=== PATIENT | female | born 1995 | race American Indian/Alaskan Native ===

== ENCOUNTER 2017-09-20 14:04 | Outpatient (CLI) | payer MEDICAID ==
[2017-09-20] MEDS ORDERED: LACTATED RINGERS 1,000 ML IV ONE (14:29)
[2017-09-20] MEDS ORDERED: ZOFRAN IV ONE (14:30)
[2017-09-20 15:02] LABS: Bacteria,Urine 1+ /HPF (Negative); Bilirubin,Urine NEG (Negative); Blood,Urine NEG (Negative); Color,Urine Yellow (Yellow); Mucus,Urine 1+ /HPF; RBC,Urine < 1.0 /HPF (0.0-6.0); Urobilinogen,Urine < 2.0 mg/dL (<2.0)
[2017-09-20 15:51] VITALS: BP 93/58
== END 2017-09-20 16:25 | disposition home or self-care (01) ==
LOC: TRG 14:04
PROVIDERS: ATTEND Obstetrics & Gynecology
DX: O47.03 False labor before 37 completed weeks of gestation, third trimester (principal); Z3A.31 31 weeks gestation of pregnancy
CPT/HCPCS: 59025; 81001; 96360; 96361; 96374; J2405; J7120

== ENCOUNTER 2017-12-07 14:46 | Emergency (ER) | payer MEDICAID ==
[2017-12-07 15:35] VITALS: BP 130/87
== END 2017-12-07 16:32 | disposition left against medical advice (07) ==
LOC: ED 14:46
DX: R10.9 Unspecified abdominal pain (principal); Z53.21 Procedure and treatment not carried out due to patient leaving prior to being seen by health care provider

== ENCOUNTER 2018-07-01 16:08 | Outpatient (CLI) | payer MEDICAID ==
[2018-07-01 16:56] VITALS: BP 107/61
[2018-07-01 17:22] LABS: Bilirubin,Urine NEG (Negative); Blood,Urine NEG (Negative); Color,Urine Yellow (Yellow); Mucus,Urine 3+ /HPF
[2018-07-01] MEDS ORDERED: LACTATED RINGERS 500 ML IV ONE (17:57)
== END 2018-07-01 18:31 | disposition home or self-care (01) ==
LOC: TRG 16:08
PROVIDERS: ATTEND Obstetrics & Gynecology
DX: O47.02 False labor before 37 completed weeks of gestation, second trimester (principal); Z3A.27 27 weeks gestation of pregnancy
CPT/HCPCS: 36415; 59025; 81001; 82731; J7120

== ENCOUNTER 2018-07-25 10:27 | Outpatient (CLI) | payer MEDICAID ==
[2018-07-25] MEDS ORDERED: LACTATED RINGERS 500 ML IV ONE (10:54)
[2018-07-25 11:45] LABS: Hematocrit 34.4 % (30.3-42.9); Hemoglobin 11.8 gm/dl (10.1-14.3); Mean Corpuscular HGB Conc 34 % (30-34); Mean Corpuscular Volume 90 fl (79-97); Platelet Count 179 K/mm3 (140-440); Red Blood Count 3.81 M/mm3 (3.65-5.03); Red Cell Distribution Width 13.6 % (13.2-15.2)
[2018-07-25 11:50] LABS: Bilirubin,Urine NEG (Negative); Blood,Urine NEG (Negative); Color,Urine Yellow (Yellow); Mucus,Urine 1+ /HPF; Urobilinogen,Urine < 2.0 mg/dL (<2.0)
[2018-07-25 12:11] LABS: Alanine Aminotransferase 8 units/L (7-56); Albumin 3.1 g/dL (3.9-5); BUN/Creatinine Ratio 13; Blood Urea Nitrogen 5 mg/dL (7-17); Hemolysis Index 18
--- NOTE | 2018-07-25 14:14 | Ultrasound Report ---
FINAL REPORT EXAM: BIOPHYSICAL PROFILE WO NST HISTORY: well bring-twins TECHNIQUE: Grayscale and color doppler ultrasound of the fetus was performed for biophysical profile . PRIORS: None. FINDINGS: Twin intrauterine was present. This biophysical profile study was performed on fetus A whic h is present in cephalic presentation. Biophysical profile score of 8 out of 8 was noted. Scores of 2 out of 2 were given for breathin g movements, movements, posterior and tone and qualitative amniotic fluid volume. h eart rate was 140 beats per minute. IMPRESSION: Normal biophysical profile, Fetus A.
--- NOTE | 2018-07-25 14:15 | Ultrasound Report ---
FINAL REPORT EXAM: BIOPHYSICAL PROFILE HISTORY: well being-twins TECHNIQUE: Grayscale and color doppler ultrasound of the fetus was performed for biophysical profile . PRIORS: None. FINDINGS: Twin intrauterine is present. The study was performed on fetus B which is present in cephal ic presentation. Biophysical profile score of 8 out of 8 was noted. Scores of 2 out of 2 were given for breathin g movements, movements, posterior and tone and qualitative amniotic fluid volume. IMPRESSION: Normal biophysical profile, Fetus B.
== END 2018-07-25 14:07 | disposition home or self-care (01) ==
LOC: TRG 10:27
PROVIDERS: ATTEND Obstetrics & Gynecology
DX: O21.2 Late vomiting of pregnancy (principal); O26.893 Other specified pregnancy related conditions, third trimester; R19.7 Diarrhea, unspecified; O47.03 False labor before 37 completed weeks of gestation, third trimester; Z3A.31 31 weeks gestation of pregnancy
CPT/HCPCS: 36415; 59025; 76819; 80053; 81001; 85027; J7120; 96360

== ENCOUNTER 2018-08-22 17:45 | Inpatient (IN) | payer MEDICAID ==
[2018-08-22] MEDS ORDERED: SUBLIMAZE IV PRN (19:23)
[2018-08-22] MEDS ORDERED: STADOL IV PRN (19:23)
[2018-08-22] MEDS ORDERED: BRETHINE IVP PRN (19:23)
[2018-08-22] MEDS ORDERED: ZOFRAN IV PRN (19:23)
[2018-08-22] MEDS ORDERED: BRETHINE SUB-Q PRN (19:23)
[2018-08-22] MEDS ORDERED: MINERAL OIL PO PRN (19:23)
--- NOTE | 2018-08-22 19:29 | History and Physical Report ---
History of Present Illness Date of examination: 08/22/18 Chief complaint: Labor History of present illness: Pt is a 22yo BF EDC 09/27/18; EGA 34 6/7 weeks presents to L&D complaining of irregular contractions. She received care at [facility] since 9 weeks and co-managed by [facility]ID for Twin gestation. She was seen in the office last week and was dilated 3cms, today she has progressed to 4.5cm records are available and GBS is Negative. Past History Past Medical History: no pertinent history Past Surgical History: no surgical history Family/Genetic History: none Social history: no significant social history, single - Obstetrical History Expected Date of Delivery: 09/27/18 Actual Gestation: 34 Week(s) 6 Day(s) : 4 Medications and Allergies Allergies Allergy/AdvReac Type Severity Reaction Status Date / Time animal dander Allergy Severe Itching Verified 08/22/18 18:02 Home Medications Medication Instructions Recorded Confirmed Last Taken Type Vit-Fe Fumar-FA [ 1 tab PO QDAY 08/22/18 08/22/18 Unknown History Vitamin] Active Meds: Active Medications Butorphanol Tartrate (Stadol) 2 mg IV Q2H PRN PRN Reason: Pain , Severe (7-10) Ephedrine Sulfate (Ephedrine Sulfate) 10 mg IV Q2M PRN PRN Reason: Hypotension Fentanyl (Sublimaze) 100 mcg IV Q2H PRN PRN Reason: Labor Pain Ampicillin Sodium (Ampicillin/Ns 1 Gm/50 Ml) 1 gm in 50 mls @ 100 mls/hr IV Q4HR DAVID; Protocol Ampicillin Sodium (Polycillin/Ns 2 Gm/100 Ml) 2 gm in 100 mls @ 100 mls/hr IV ONCE ONE; Protocol Stop: 08/22/18 20:22 Lactated Ringer's (Lactated Ringers) 1,000 mls @ 125 mls/hr IV DIRECT DAVID Oxytocin/Sodium Chloride (Pitocin/Ns 20 Unit/1000ml Drip) 20 units in 1,000 mls @ 125 mls/hr IV DIRECT DAVID Oxytocin/Sodium Chloride (Pitocin/Ns 30 Unit/500ml) 30 units in 500 mls @ 1 mls/hr IV TITR DAVID; Protocol Lidocaine (Xylocaine 2%) 20 ml INFILTRATI ONCE ONE Stop: 03/10/19 19:24 Mineral Oil (Mineral Oil) 30 ml PO QHS PRN PRN Reason: Constipation Ondansetron HCl (Zofran) 4 mg IV Q8H PRN PRN Reason: Nausea And Vomiting Terbutaline Sulfate (Brethine) 0.25 mg SUB-Q ONCE PRN PRN Reason: Hyperstimulation/Hypertonicity Terbutaline Sulfate (Brethine) 0.25 mg IVP ONCE PRN PRN Reason: Hyperstimulation/Hypertonicity Review of Systems All systems: negative - Vital Signs Vital signs: Vital Signs Pulse BP 110 H 136/83 08/22/18 18:21 08/22/18 18:21 Temp Pulse Resp BP Pulse Ox 110 H 136/83 08/22/18 18:21 08/22/18 18:21 - Physical Exam Breasts: Positive: deferred Cardiovascular: Regular rate Lungs: Positive: Clear to auscultation Abdomen: Positive: normal appearance Genitourinary (Female): Positive: normal external genitalia Vagina: Positive: normal moisture Uterus: Positive: enlarged Extremities: Positive: normal - Obstetrical FHR: category 1 Uterine Contraction Monitor Mode: External Cervical Dilatation: 4.5 (per nurse) Cervical Effacement Percentage: 70 (per nurse) station: -2 Uterine Contraction Pattern: Regular Uterine Tone Measurement Phase: Contraction Uterine Contraction Intensity: Mild Results All other labs normal. Ultrasound: report reviewed (Vetex/breech presentation) Assessment and Plan - Patient Problems (1) 35 weeks gestation of Onset Date: 08/22/18 Current Visit: Yes Status: Acute Plan to address problem: A: IUP @ 34 6/7 weeks in early labor Vertex/breech presentation GBS Negative P: Will admit for Observation and IV hydration and IV Magnesium sulfate Begin steroids for FLM [facility] and NICU consultation (2) Twin gestation in third trimester Onset Date: 08/22/18 Current Visit: Yes Status: Acute Qualifiers: Multiple gestation type: dichorionic and diamniotic Qualified Code(s): O30.043 - Twin , dichorionic/diamniotic, third trimester
[2018-08-22] MEDS ORDERED: AMPICILLIN/NS 2 GM/100 ML 2 GM/100 ML BAG IV ONE (20:00)
[2018-08-22] MEDS ORDERED: PITOCin/NS 20 UNIT/1000ML DRIP 20 UNITS/1,000 ML BAG IV SCH (20:00)
[2018-08-22] MEDS ORDERED: PITOCin/NS 30 UNIT/500ML 30 UNITS/500 ML BAG IV SCH (20:00)
[2018-08-22] MEDS ORDERED: XYLOCAINE 2% INFILTRATI ONE (20:00)
[2018-08-22 20:14] LABS: Bilirubin,Urine NEG (Negative); Blood,Urine NEG (Negative); Color,Urine Yellow (Yellow); Mucus,Urine FEW /HPF; Protein,Urine <15 mg/dL mg/dL (Negative); Urobilinogen,Urine < 2.0 mg/dL (<2.0)
[2018-08-22] MEDS ORDERED: MAGNESIUM SULFATE 4GM/100ML 4 GM/100 ML BAG IV ONE (20:16)
[2018-08-22] MEDS ORDERED: BICITRA ONE (20:29)
--- NOTE | 2018-08-22 20:45 | Ultrasound Report ---
PROCEDURE: Limited obstetrical ultrasound. TECHNIQUE: Real-time limited sonographic examination was performed for evaluation of twin A with amador ge documentation (1 or more fetuses). HISTORY: Twin gestation, labor, evaluate presentation. COMPARISONS: None. FINDINGS: Twin A is in cephalic presentation. Cardiac activity is documented at 152 bpm. Twin B is in breech pr esentation. Cardiac activity is documented at 143 bpm. IMPRESSION: Viable twin with twin A in cephalic presentation and twin B in breech presentation. This document is electronically signed by Pete Noel MD., August 22 2018 08:43:11 PM ET
--- NOTE | 2018-08-22 20:53 | Ultrasound Report ---
PROCEDURE: US OB LIMITED TECHNIQUE: Ultrasound obstetrical limited for presentation HISTORY: 35 weeks; Twins; Presentation COMPARISONS: FINDINGS: Twin . Please see today's additional OB ultrasound For twin B presentation is breech. Cardiac activity present with a heart rate 1 43 bpm IMPRESSION: Twin B in breech presentation. This document is electronically signed by Addy Negrete MD., August 22 2018 08:51:47 PM ET
[2018-08-22] MEDS ORDERED: CELESTONE SOLUSPAN IM SCH (21:00)
[2018-08-22] MEDS: DECADRON IM SCH (22:25)
[2018-08-22] MEDS: MAGNESIUM SULFATE 40GM/1000ML 40 GM/1,000 ML BAG IV SCH (22:27)
[2018-08-22] MEDS: LACTATED RINGERS 1,000 ML IV SCH (22:28)
[2018-08-22 23:14] LABS: Hematocrit 34.3 % (30.3-42.9); Hemoglobin 11.6 gm/dl (10.1-14.3); Mean Corpuscular HGB Conc 34 % (30-34); Mean Corpuscular Volume 89 fl (79-97); Platelet Count 177 K/mm3 (140-440); Red Blood Count 3.86 M/mm3 (3.65-5.03); Red Cell Distribution Width 13.7 % (13.2-15.2)
[2018-08-23] MEDS ORDERED: BICITRA PO ONE (00:47)
[2018-08-23] MEDS: DECADRON IM SCH ×2 (10:29→22:25)
--- NOTE | 2018-08-23 11:52 | Progress Note ---
Assessment and Plan - Patient Problems (1) 35 weeks gestation of Onset Date: 08/22/18 Current Visit: Yes Status: Acute Plan to address problem: A: IUP @ 35 0/7 weeks in early labor Vertex/breech presentation GBS Negative P: Will continue with Observation, IV hydration and IV Magnesium sulfate until steroids for FLM completed [facility] consultation (2) Twin gestation in third trimester Onset Date: 08/22/18 Current Visit: Yes Status: Acute Qualifiers: Multiple gestation type: dichorionic and diamniotic Qualified Code(s): O30.043 - Twin , dichorionic/diamniotic, third trimester Subjective - Subjective Date of service: 08/23/18 Principal diagnosis: IUP @ 35 0/7 weeks; Twin gestation; PTL Interval history: Pt is a 22yo BF EDC 09/27/18; EGA 35 0/7 weeks admitted to L&D complaining of irregular contractions. She received care at [facility] since 9 weeks and co-managed by [facility] for Twin gestation. She was seen in the office last week and was dilated 3cms, today she has progressed to 4.5cm. She is currently on IV Magnesium sulfate until she completes her course of steroids. records are available and GBS is Negative. Patient reports: movement normal, contractions, no new complaints, no loss of fluid, no vaginal bleeding Objective - Vital Signs Vital Signs: Vital Signs - 12hr 08/23/18 08/23/18 08/23/18 00:42 00:43 00:48 Pulse Rate 97 H 99 H 113 H Blood Pressure O2 Sat by Pulse 94 100 97 Oximetry 08/23/18 08/23/18 08/23/18 00:53 00:58 01:03 Pulse Rate 107 H 105 H 98 H Blood Pressure O2 Sat by Pulse 100 100 100 Oximetry 08/23/18 08/23/18 08/23/18 01:08 01:10 01:13 Pulse Rate 104 H 101 H 111 H Blood Pressure 131/76 O2 Sat by Pulse 99 99 Oximetry 08/23/18 08/23/18 08/23/18 01:33 01:38 01:40 Pulse Rate 111 H 97 H 115 H Blood Pressure 121/73 O2 Sat by Pulse 92 93 Oximetry 08/23/18 08/23/18 08/23/18 01:43 01:49 01:50 Pulse Rate 112 H 98 H Blood Pressure O2 Sat by Pulse 97 58 L 79 L Oximetry 08/23/18 08/23/18 08/23/18 01:55 02:00 02:05 Pulse Rate 102 H 111 H 108 H Blood Pressure O2 Sat by Pulse 99 100 97 Oximetry 08/23/18 08/23/18 08/23/18 02:10 02:11 02:29 Pulse Rate 109 H 109 H 117 H Blood Pressure O2 Sat by Pulse 99 0 L 100 Oximetry 08/23/18 08/23/18 08/23/18 02:34 02:39 02:40 Pulse Rate 121 H 115 H 100 H Blood Pressure 135/69 O2 Sat by Pulse 99 100 Oximetry 08/23/18 08/23/18 08/23/18 02:44 03:10 03:11 Pulse Rate 108 H 112 H 100 H Blood Pressure 143/63 O2 Sat by Pulse 98 96 Oximetry 08/23/18 08/23/18 08/23/18 03:36 03:40 03:42 Pulse Rate 101 H 107 H 109 H Blood Pressure 131/72 O2 Sat by Pulse 100 87 Oximetry 08/23/18 08/23/18 08/23/18 03:43 03:48 04:10 Pulse Rate 94 H 115 H 107 H Blood Pressure 123/85 O2 Sat by Pulse 100 99 Oximetry 08/23/18 08/23/18 08/23/18 04:15 04:20 04:40 Pulse Rate 114 H 124 H 95 H Blood Pressure 99/54 O2 Sat by Pulse 99 100 Oximetry 08/23/18 08/23/18 08/23/18 05:10 05:15 05:39 Pulse Rate 108 H 108 H 110 H Blood Pressure 125/73 125/74 137/75 O2 Sat by Pulse Oximetry 08/23/18 08/23/18 08/23/18 06:10 06:37 06:40 Pulse Rate 93 H 115 H 103 H Blood Pressure 123/59 122/57 O2 Sat by Pulse 100 Oximetry 08/23/18 08/23/18 08/23/18 06:42 06:47 06:53 Pulse Rate 101 H 102 H 28 L Blood Pressure O2 Sat by Pulse 100 100 94 Oximetry 08/23/18 08/23/18 08/23/18 06:54 06:59 07:04 Pulse Rate 114 H 105 H 102 H Blood Pressure O2 Sat by Pulse 100 100 99 Oximetry 08/23/18 08/23/18 08/23/18 07:09 07:10 07:11 Pulse Rate 102 H 112 H 96 H Blood Pressure 119/61 O2 Sat by Pulse 99 70 L Oximetry 08/23/18 08/23/18 08/23/18 07:16 07:18 07:29 Pulse Rate 99 H 112 H Blood Pressure O2 Sat by Pulse 80 L 100 100 Oximetry 08/23/18 08/23/18 08/23/18 07:34 07:39 07:41 Pulse Rate 122 H 104 H 101 H Blood Pressure 94/50 O2 Sat by Pulse 100 99 Oximetry 08/23/18 08/23/18 08/23/18 07:44 08:09 08:40 Pulse Rate 110 H 95 H 108 H Blood Pressure 125/73 126/71 O2 Sat by Pulse 100 Oximetry 08/23/18 08/23/18 08/23/18 09:10 09:35 09:41 Pulse Rate 105 H 117 H 103 H Blood Pressure 121/86 118/66 O2 Sat by Pulse 100 Oximetry 08/23/18 08/23/18 08/23/18 09:43 09:46 09:48 Pulse Rate 110 H 94 H 108 H Blood Pressure O2 Sat by Pulse 100 74 L 100 Oximetry 08/23/18 08/23/18 08/23/18 09:53 09:58 10:03 Pulse Rate 110 H 109 H 109 H Blood Pressure O2 Sat by Pulse 100 100 100 Oximetry 08/23/18 08/23/18 08/23/18 10:08 10:10 10:13 Pulse Rate 94 H 95 H 94 H Blood Pressure 116/71 O2 Sat by Pulse 100 100 Oximetry 08/23/18 08/23/18 08/23/18 10:18 10:23 10:28 Pulse Rate 95 H 95 H 97 H Blood Pressure O2 Sat by Pulse 100 100 100 Oximetry 08/23/18 08/23/18 08/23/18 10:33 10:38 10:40 Pulse Rate 91 H 98 H 91 H Blood Pressure 118/65 O2 Sat by Pulse 100 100 Oximetry 08/23/18 08/23/18 08/23/18 10:43 10:48 10:50 Pulse Rate 95 H 111 H 120 H Blood Pressure O2 Sat by Pulse 100 100 23 L Oximetry 08/23/18 08/23/18 08/23/18 10:55 10:59 11:04 Pulse Rate 118 H 113 H 100 H Blood Pressure 135/72 O2 Sat by Pulse 93 100 Oximetry 08/23/18 08/23/18 08/23/18 11:09 11:28 11:29 Pulse Rate 108 H 102 H 101 H Blood Pressure O2 Sat by Pulse 100 90 95 Oximetry 08/23/18 08/23/18 11:34 11:41 Pulse Rate 98 H 106 H Blood Pressure O2 Sat by Pulse 100 100 Oximetry - Exam Abdomen: Present: normal appearance, soft Uterus: Present: normal FHR: category 1 Uterine Contraction Monitor Mode: External Cervical Dilatation: 5.5 (per nurse) Cervical Effacement Percentage: 80 (per nurse) station: -2 Uterine Contraction Pattern: Irregular Uterine Tone Measurement Phase: Contraction Uterine Contraction Intensity: Mild - Labs Labs: Abnormal Labs 08/22/18 08/23/18 08/23/18 18:00 01:11 08:47 Magnesium 4.10 H 5.30 H Urine WBC (Auto) 10.0 H Laboratory Results - last 24 hr 08/22/18 08/22/18 08/22/18 18:00 22:41 22:41 WBC 9.6 RBC 3.86 Hgb 11.6 Hct 34.3 MCV 89 MCH 30 MCHC 34 RDW 13.7 Plt Count 177 Magnesium Urine Color Yellow Urine Turbidity Clear Urine pH 6.0 Ur Specific [place] 1.023 Urine Protein <15 mg/dl Urine Glucose (UA) Neg Urine Ketones Neg Urine Blood Neg Urine Nitrite Neg Urine Bilirubin Neg Urine Urobilinogen < 2.0 Ur Leukocyte Esterase Sm Urine WBC (Auto) 10.0 H Urine RBC (Auto) 2.0 U Epithel Cells (Auto) 6.0 Urine Mucus Few Blood Type O POSITIVE Antibody Screen Negative 08/23/18 08/23/18 01:11 08:47 WBC RBC Hgb Hct MCV MCH MCHC RDW Plt Count Magnesium 4.10 H 5.30 H Urine Color Urine Turbidity Urine pH Ur Specific [place] Urine Protein Urine Glucose (UA) Urine Ketones Urine Blood Urine Nitrite Urine Bilirubin Urine Urobilinogen Ur Leukocyte Esterase Urine WBC (Auto) Urine RBC (Auto) U Epithel Cells (Auto) Urine Mucus Blood Type Antibody Screen
[2018-08-23] MEDS ORDERED: SUBLIMAZE IV ONE (13:23)
--- NOTE | 2018-08-23 13:59 | Consultation ---
History of Present Illness Consult date: 08/23/18 Requesting physician: DIRK GARCIA History of present illness: Ms. Magallon is a 22 y/o NANDA 09/29/18 EGA at 35 0/7 weeks Di/Di Twins Presented on 08/22/18 with PTL Initial exam 4-5 cm and examined today at 5 1/2 cm Nurses report PTC's at 1-3 " Denies Leakage vag bleeding Pos FM's Denies Complications On Mg getting Dexamethasone 6 mg q 12 x 4 OB History 2017 Term no comps 2018 Term - reported ?? cervical/uterine prolapse after delivery No Meds, No Surg, NKA, No C/D/D, No STD's US [facility] - Vtx/Breech Past History Past Medical History: no pertinent history Past Surgical History: no surgical history Family/Genetic History: none - Obstetrical History : 4 Medications and Allergies Allergies Allergy/AdvReac Type Severity Reaction Status Date / Time animal dander Allergy Severe Itching Verified 08/22/18 18:02 Home Medications Medication Instructions Recorded Confirmed Last Taken Type Vit-Fe Fumar-FA [ 1 tab PO QDAY 08/22/18 08/22/18 Unknown History Vitamin] Active Meds: Active Medications Betamethasone Acet/Betameth SodPhos (Celestone Soluspan) 12 mg IM Q24H DAVID Stop: 08/23/18 21:01 Butorphanol Tartrate (Stadol) 2 mg IV Q2H PRN PRN Reason: Pain , Severe (7-10) Dexamethasone (Decadron) 6 mg IM Q12HR DAVID Stop: 08/24/18 10:01 Last Admin: 08/23/18 10:29 Dose: 6 mg Documented by: Ephedrine Sulfate (Ephedrine Sulfate) 10 mg IV Q2M PRN PRN Reason: Hypotension Fentanyl (Sublimaze) 100 mcg IV Q2H PRN PRN Reason: Labor Pain Ampicillin Sodium (Ampicillin/Ns 1 Gm/50 Ml) 1 gm in 50 mls @ 100 mls/hr IV Q4H DAVID; Protocol Lactated Ringer's (Lactated Ringers) 1,000 mls @ 125 mls/hr IV DIRECT DAVID Last Admin: 08/22/18 22:28 Dose: 125 mls/hr Documented by: Oxytocin/Sodium Chloride (Pitocin/Ns 20 Unit/1000ml Drip) 20 units in 1,000 mls @ 125 mls/hr IV DIRECT DAVID Oxytocin/Sodium Chloride (Pitocin/Ns 30 Unit/500ml) 30 units in 500 mls @ 1 mls/hr IV TITR DAVID; Protocol Magnesium Sulfate (Magnesium Sulfate 40gm/1000ml) 40 gm in 1,000 mls @ 25 mls/hr IV DIRECT DAVID Last Admin: 08/22/18 22:27 Dose: 2 gm/hr, 50 mls/hr Documented by: Mineral Oil (Mineral Oil) 30 ml PO QHS PRN PRN Reason: Constipation Ondansetron HCl (Zofran) 4 mg IV Q8H PRN PRN Reason: Nausea And Vomiting Terbutaline Sulfate (Brethine) 0.25 mg SUB-Q ONCE PRN PRN Reason: Hyperstimulation/Hypertonicity Terbutaline Sulfate (Brethine) 0.25 mg IVP ONCE PRN PRN Reason: Hyperstimulation/Hypertonicity - Vital Signs Vital signs: Vital Signs Pulse BP 110 H 136/83 08/22/18 18:21 08/22/18 18:21 Temp Pulse Resp BP Pulse Ox 104 H 139/71 98 08/23/18 13:38 08/23/18 12:10 08/23/18 13:38 Results Result Diagrams: 08/22/18 22:41 Abnormal lab results 08/22/18 08/23/18 08/23/18 Range/Units 18:00 01:11 08:47 Magnesium 4.10 H 5.30 H (1.7-2.3) mg/dL Urine WBC (Auto) 10.0 H (0.0-6.0) /HPF 08/23/18 Range/Units 11:57 Magnesium 5.70 H (1.7-2.3) mg/dL Urine WBC (Auto) (0.0-6.0) /HPF All other labs normal. Assessment and Plan 1. Di/Di Twin IUP at 35 0/7 weeks 2. PTL 3. ?? H/O Cervical/Ut Prolapse after 2nd delivery in 2018 Recommendations 1. Steroids for FLM 2. Discontinue Mg after steroid complete 3. After steroid complete would allow labor to take its course 4. US for EFW's and BPP if not done 5. Sign consult for possible C/S 6. NICU consult if not done 7. Seq Leg compressors 8. Straight cath urine for UA and C&S
[2018-08-23] MEDS: MAGNESIUM SULFATE 40GM/1000ML 40 GM/1,000 ML BAG IV SCH (21:05)
[2018-08-24] MEDS ORDERED: BICITRA ONE (00:34)
--- NOTE | 2018-08-24 08:55 | Progress Note ---
Assessment and Plan - Patient Problems (1) 35 weeks gestation of Onset Date: 08/22/18 Current Visit: Yes Status: Acute Plan to address problem: A: IUP @ 35 1/7 weeks in early labor Vertex/breech presentation GBS Negative P: Will D/C IV Magnesium sulfate Steroids for FLM - completed Appreciate [facility] and NICU consultation (2) Twin gestation in third trimester Onset Date: 08/22/18 Current Visit: Yes Status: Acute Qualifiers: Multiple gestation type: dichorionic and diamniotic Qualified Code(s): O30.043 - Twin , dichorionic/diamniotic, third trimester Subjective - Subjective Date of service: 08/24/18 Principal diagnosis: IUP @ 35 1/7 weeks; Twin gestation; PTL Interval history: Pt is a 22yo BF EDC 09/27/18; EGA 35 1/7 weeks presents to L&D complaining of irregular contractions. She received care at [facility] since 9 weeks and co-managed by [facility] for Twin gestation. She was seen in the office last week and was dilated 3cms, she progressed to 4.5cm and thus was started on IV Magnesium sulfate until her course of steroids were completed. They are now completed, and so the IV Magnesium sulfate will be discontinued and labor will be allowed to progress. Pt has no complaints, and is feeling her occasional contractions. Patient reports: movement normal, contractions, no new complaints, no loss of fluid, no vaginal bleeding Objective - Vital Signs Vital Signs: Vital Signs - 12hr 08/23/18 08/23/18 08/23/18 20:59 21:04 21:09 Temperature Pulse Rate 113 H 116 H 113 H Respiratory Rate Blood Pressure O2 Sat by Pulse 100 100 93 Oximetry 08/23/18 08/23/18 08/23/18 21:14 21:19 21:24 Temperature Pulse Rate 114 H 120 H 109 H Respiratory Rate Blood Pressure O2 Sat by Pulse 100 100 99 Oximetry 08/23/18 08/23/18 08/23/18 21:29 21:34 21:39 Temperature Pulse Rate 114 H 106 H 119 H Respiratory Rate Blood Pressure O2 Sat by Pulse 100 100 99 Oximetry 08/23/18 08/23/18 08/23/18 21:43 22:43 22:48 Temperature Pulse Rate 112 H 112 H 102 H Respiratory Rate Blood Pressure 124/75 O2 Sat by Pulse 100 100 Oximetry 08/23/18 08/23/18 08/23/18 22:53 22:58 23:03 Temperature Pulse Rate 111 H 95 H 95 H Respiratory Rate Blood Pressure O2 Sat by Pulse 100 100 100 Oximetry 08/23/18 08/23/18 08/23/18 23:08 23:13 23:18 Temperature Pulse Rate 98 H 91 H 106 H Respiratory Rate Blood Pressure O2 Sat by Pulse 100 100 100 Oximetry 08/23/18 08/23/18 08/23/18 23:23 23:28 23:33 Temperature Pulse Rate 99 H 100 H 25 L Respiratory Rate Blood Pressure O2 Sat by Pulse 100 100 66 L Oximetry 08/23/18 08/23/18 08/23/18 23:38 23:40 23:43 Temperature 97.7 F Pulse Rate 113 H 91 H 101 H Respiratory 16 Rate Blood Pressure O2 Sat by Pulse 65 L 80 L 100 Oximetry 08/23/18 08/23/18 08/23/18 23:48 23:53 23:58 Temperature Pulse Rate 111 H 104 H 99 H Respiratory Rate Blood Pressure O2 Sat by Pulse 99 99 100 Oximetry 08/24/18 08/24/18 08/24/18 00:03 00:08 00:13 Temperature Pulse Rate 106 H 122 H 106 H Respiratory Rate Blood Pressure O2 Sat by Pulse 100 100 99 Oximetry 08/24/18 08/24/18 08/24/18 00:18 00:34 03:49 Temperature Pulse Rate 125 H 113 H 75 Respiratory Rate Blood Pressure O2 Sat by Pulse 99 100 85 Oximetry 08/24/18 08/24/18 08/24/18 03:50 03:55 04:00 Temperature Pulse Rate 110 H 127 H 109 H Respiratory Rate Blood Pressure O2 Sat by Pulse 98 94 97 Oximetry 08/24/18 08/24/18 08/24/18 04:05 04:10 04:15 Temperature Pulse Rate 127 H 120 H 113 H Respiratory Rate Blood Pressure O2 Sat by Pulse 98 97 98 Oximetry 08/24/18 08/24/18 08/24/18 04:20 04:21 04:28 Temperature 97.7 F Pulse Rate 125 H 111 H 60 Respiratory Rate Blood Pressure 95/56 O2 Sat by Pulse 98 97 Oximetry 08/24/18 08/24/18 08/24/18 04:33 04:38 04:43 Temperature Pulse Rate 107 H 104 H 79 Respiratory Rate Blood Pressure O2 Sat by Pulse 100 99 98 Oximetry 08/24/18 08/24/18 08/24/18 04:48 04:53 04:58 Temperature Pulse Rate 108 H 105 H 107 H Respiratory Rate Blood Pressure O2 Sat by Pulse 98 99 98 Oximetry 08/24/18 08/24/18 08/24/18 05:03 05:08 05:13 Temperature Pulse Rate 107 H 106 H 115 H Respiratory Rate Blood Pressure O2 Sat by Pulse 98 97 99 Oximetry 08/24/18 08/24/18 08/24/18 05:18 05:23 05:28 Temperature Pulse Rate 107 H 87 102 H Respiratory Rate Blood Pressure O2 Sat by Pulse 100 100 98 Oximetry 08/24/18 08/24/18 08/24/18 05:33 05:38 05:45 Temperature Pulse Rate 99 H 103 H 118 H Respiratory Rate Blood Pressure O2 Sat by Pulse 98 99 99 Oximetry 08/24/18 08/24/18 08/24/18 05:50 05:55 06:00 Temperature Pulse Rate 105 H 118 H 110 H Respiratory Rate Blood Pressure O2 Sat by Pulse 98 98 97 Oximetry 08/24/18 08/24/18 08/24/18 06:05 06:10 06:15 Temperature Pulse Rate 108 H 108 H 115 H Respiratory Rate Blood Pressure O2 Sat by Pulse 97 97 96 Oximetry 08/24/18 08/24/18 08/24/18 06:20 06:25 06:27 Temperature Pulse Rate 122 H 113 H 133 H Respiratory Rate Blood Pressure O2 Sat by Pulse 96 96 94 Oximetry 08/24/18 08/24/18 08/24/18 06:30 06:35 06:40 Temperature Pulse Rate 109 H 110 H 108 H Respiratory Rate Blood Pressure O2 Sat by Pulse 99 97 98 Oximetry 08/24/18 08/24/18 08/24/18 06:48 06:49 06:54 Temperature Pulse Rate 54 L 104 H 106 H Respiratory Rate Blood Pressure O2 Sat by Pulse 92 99 99 Oximetry 08/24/18 08/24/18 08/24/18 06:59 07:04 07:09 Temperature Pulse Rate 107 H 109 H 109 H Respiratory Rate Blood Pressure O2 Sat by Pulse 99 99 99 Oximetry 08/24/18 08/24/18 08/24/18 07:14 07:19 07:24 Temperature Pulse Rate 103 H 108 H 113 H Respiratory Rate Blood Pressure O2 Sat by Pulse 99 99 99 Oximetry 08/24/18 08/24/18 08/24/18 07:34 07:35 07:40 Temperature Pulse Rate 105 H 99 H Respiratory Rate Blood Pressure O2 Sat by Pulse 81 L 99 100 Oximetry 08/24/18 08/24/18 08/24/18 07:45 07:50 07:55 Temperature Pulse Rate 117 H 112 H 114 H Respiratory Rate Blood Pressure O2 Sat by Pulse 99 99 100 Oximetry 08/24/18 08/24/18 08/24/18 08:00 08:05 08:10 Temperature Pulse Rate 124 H 125 H 116 H Respiratory Rate Blood Pressure O2 Sat by Pulse 100 100 100 Oximetry 08/24/18 08/24/18 08/24/18 08:15 08:20 08:25 Temperature Pulse Rate 115 H 117 H 108 H Respiratory Rate Blood Pressure O2 Sat by Pulse 100 100 99 Oximetry 08/24/18 08:53 Temperature Pulse Rate 94 H Respiratory Rate Blood Pressure O2 Sat by Pulse 99 Oximetry - Exam Abdomen: Present: normal appearance, soft Uterus: Present: normal FHR: category 1 Uterine Contraction Monitor Mode: External Cervical Dilatation: 6 (per nurse) Cervical Effacement Percentage: 80 (per nurse) station: -2 Uterine Contraction Pattern: Irregular Uterine Tone Measurement Phase: Contraction Uterine Contraction Intensity: Mild - Labs Labs: Abnormal Labs 08/22/18 08/23/18 08/23/18 18:00 01:11 08:47 Magnesium 4.10 H 5.30 H Urine WBC (Auto) 10.0 H 08/23/18 08/23/18 08/23/18 11:57 18:34 22:07 Magnesium 5.70 H 4.80 H 4.50 H Urine WBC (Auto) 08/24/18 05:13 Magnesium 4.10 H Urine WBC (Auto) Laboratory Results - last 24 hr 08/22/18 08/23/18 08/23/18 22:41 08:47 11:57 Magnesium 5.30 H 5.70 H RPR Nonreactive 08/23/18 08/23/18 08/24/18 18:34 22:07 05:13 Magnesium 4.80 H 4.50 H 4.10 H RPR
--- NOTE | 2018-08-24 09:44 | Consultation ---
History of Present Illness Consult date: 08/24/18 Requesting physician: DIRK GARCIA Reason for consult: contractions History of present illness: Thank you for your recent consultation regarding the above named patient. As you are aware, she is a patient at 35+ weeks gestation with a twin gestation admitted to [facility] due to PTL and advanced cervical dilation. Her most recent exam was 6 cm / 40% / - 4 station. Patient has completed steroids and magnesium sulfate. Her urine culture was negative. PAST OB HISTORY: See reports in patients chart. Past History Past Medical History: no pertinent history Past Surgical History: no surgical history Family/Genetic History: none - Obstetrical History : 4 Medications and Allergies Allergies Allergy/AdvReac Type Severity Reaction Status Date / Time animal dander Allergy Severe Itching Verified 08/22/18 18:02 Home Medications Medication Instructions Recorded Confirmed Last Taken Type Vit-Fe Fumar-FA [ 1 tab PO QDAY 08/22/18 08/22/18 Unknown History Vitamin] Active Meds: Active Medications Butorphanol Tartrate (Stadol) 2 mg IV Q2H PRN PRN Reason: Pain , Severe (7-10) Dexamethasone (Decadron) 6 mg IM Q12HR DAVID Stop: 08/24/18 10:01 Last Admin: 08/23/18 22:25 Dose: 6 mg Documented by: Ephedrine Sulfate (Ephedrine Sulfate) 10 mg IV Q2M PRN PRN Reason: Hypotension Fentanyl (Sublimaze) 100 mcg IV Q2H PRN PRN Reason: Labor Pain Ampicillin Sodium (Ampicillin/Ns 1 Gm/50 Ml) 1 gm in 50 mls @ 100 mls/hr IV Q4H DAVID; Protocol Lactated Ringer's (Lactated Ringers) 1,000 mls @ 125 mls/hr IV DIRECT DAVID Last Admin: 08/22/18 22:28 Dose: 125 mls/hr Documented by: Oxytocin/Sodium Chloride (Pitocin/Ns 20 Unit/1000ml Drip) 20 units in 1,000 mls @ 125 mls/hr IV DIRECT DAVID Oxytocin/Sodium Chloride (Pitocin/Ns 30 Unit/500ml) 30 units in 500 mls @ 1 mls/hr IV TITR DAVID; Protocol Magnesium Sulfate (Magnesium Sulfate 40gm/1000ml) 40 gm in 1,000 mls @ 25 mls/hr IV DIRECT DAVID Last Admin: 08/23/18 21:05 Dose: 2 gm/hr, 50 mls/hr Documented by: Mineral Oil (Mineral Oil) 30 ml PO QHS PRN PRN Reason: Constipation Ondansetron HCl (Zofran) 4 mg IV Q8H PRN PRN Reason: Nausea And Vomiting Terbutaline Sulfate (Brethine) 0.25 mg SUB-Q ONCE PRN PRN Reason: Hyperstimulation/Hypertonicity Terbutaline Sulfate (Brethine) 0.25 mg IVP ONCE PRN PRN Reason: Hyperstimulation/Hypertonicity - Vital Signs Vital signs: Vital Signs Pulse BP 110 H 136/83 08/22/18 18:21 08/22/18 18:21 Temp Pulse Resp BP Pulse Ox 97.7 F 117 H 16 95/56 98 08/24/18 04:28 08/24/18 09:18 08/23/18 23:40 08/24/18 04:21 08/24/18 09:18 Results Result Diagrams: 08/22/18 22:41 Abnormal lab results 08/23/18 08/23/18 08/23/18 Range/Units 11:57 18:34 22:07 Magnesium 5.70 H 4.80 H 4.50 H (1.7-2.3) mg/dL 08/24/18 Range/Units 05:13 Magnesium 4.10 H (1.7-2.3) mg/dL All other labs normal. Assessment and Plan ASSESSMENT / DIAGNOSIS ? As stated above this is a twin IUP at 35 weeks advanced cervical dilation. ? Intermittent uterine contractions. ? SVE: 6 cm. ? Category 1 tracing and normal Doppler studies. RECOMMENDATIONS & ORDERS 1. See our previous consult. 2. Bedrest in left lateral semi-Alanis position 3. Steroids have been administered. 4. Neonatology should be present if delivery becomes imminent and particular attention should be given to growth restriction. 5. Contact us with any change in maternal or status. Thank you for allowing us to participate in the care of this patient. We look forward to the opportunity to assist in her continued management. If you have any questions, we may be reached at [phone].
[2018-08-24] MEDS: AMPICILLIN/NS 1 GM/50 ML 1 GM/50 ML BAG IV SCH ×3 (10:32→20:00)
[2018-08-24] MEDS: DECADRON IM SCH (10:32)
[2018-08-24] MEDS ORDERED: fentaNYL-BUPIV 2 MCG/ML-0.125% 200 MCG/100 ML BAG EPIDURAL ONE (17:45)
[2018-08-24] MEDS ORDERED: NARCAN 2 MG/2 ML IV PRN (20:29)
--- NOTE | 2018-08-24 20:29 | Anesthesia Consultation ---
Anesthesia Consult and Med Hx - Airway Anesthetic Teeth Evaluation: Good ROM Head & Neck: Adequate Mental/Hyoid Distance: Adequate Mallampati Class: Class II Intubation Access Assessment: Good - Pulmonary Exam CTA: Yes - Cardiac Exam Cardiac Exam: RRR - Pre-Operative Health Status ASA Pre-Surgery Classification: ASA2 Proposed Anesthetic Plan: Epidural - Pulmonary Hx Smoking: No Hx Asthma: No Hx Respiratory Symptoms: No SOB: No COPD: No Home Oxygen Therapy: No Hx Pneumonia: No Hx Sleep Apnea: No - Cardiovascular System Hx Hypertension: No Hx Coronary Artery Disease: No Hx Heart Attack/AMI: No Hx Angina: No Hx Percutaneous Transluminal Coronary Angioplasty (PTCA): No Hx Cardia Arrhythmia: No Hx Pacemaker: No Hx Internal Defibrillator: No Hx Valvular Heart Disease: No Hx Heart Murmur: No Hx Peripheral Vascular Disease: No - Central Nervous System Hx Neuromuscular Disorder: No Hx Seizures: No CVA: No Hx Back Pain: No Hx Psychiatric Problems: No - Gastrointestinal Hx Ulcer: No Hx Gastroesophageal Reflux Disease: Yes - Endocrine Hx Renal Disease: No Hx End Stage Renal Disease: No Hx Cirrhosis: No Hx Liver Disease: No Hx Insulin Dependent Diabetes: No Hx Non-Insulin Dependent Diabetes: No Hx Thyroid Disease: No Hx Hypothyroidism: No Hx Hyperthyroidism: No - Hematic Hx Anemia: No Hx Sickle Cell Disease: No - Other Systems Hx Alcohol Use: No
--- NOTE | 2018-08-24 20:29 | Anesthesia Day of Surgery ---
Anesthesia Day of Surgery - Day of Surgery Patient Examined: Yes Patient H&P Reviewed: Yes Patient is NPO: Yes Beta Blockers: No Cardiac Clearance: No Pulmonary Clearance: No Abel's Test: N/A
[2018-08-24] MEDS ORDERED: fentaNYL-BUPIV 2 MCG/ML-0.125% 200 MCG/100 ML BAG EPIDURAL SCH (21:00)
[2018-08-24] MEDS: LACTATED RINGERS 1,000 ML IV SCH (21:25)
[2018-08-24] MEDS ORDERED: XYLOCAINE 2%/ EPI 1:200,000 INFILTRATI ONE (22:09)
[2018-08-24] MEDS ORDERED: DIPRIVAN 10 MG/ML IV ONE (22:15)
[2018-08-24] MEDS ORDERED: ANCEF/STERILE WATER 2 GM/20 ML 2 GM/20 ML SYRINGE IV ONE (22:21)
[2018-08-24] MEDS ORDERED: SUBLIMAZE ONE ×2 (22:22→22:54)
[2018-08-24] MEDS ORDERED: ZEMURON IV ONE (22:25)
[2018-08-24] MEDS ORDERED: ZOFRAN ONE (22:25)
[2018-08-24] MEDS ORDERED: DILAUDID ONE (22:25)
[2018-08-24] MEDS ORDERED: TORADOL ONE (22:47)
[2018-08-24] MEDS ORDERED: ROBINUL ONE (22:47)
[2018-08-24] MEDS ORDERED: BLOXIVERZ ONE (22:47)
--- NOTE | 2018-08-24 23:01 | Procedure Note ---
OB Delivery Note - Delivery Date of Delivery: 08/24/18 Surgeon: DIRK GARCIA Estimated blood loss: 100cc - Vaginal Delivery presentation: vertex Delivery position: OA Intrapartum events: labor-<37 weeks Delivery induction: none Delivery augmentation: rupture of membranes Delivery monitor: external FHT, external uterine Route of delivery: Delivery cord: 3 umbilical vessels Episiotomy: none Delivery laceration: none Anesthesia: epidural Delivery comments: Infant A delivered OA and placed on Mom's chest for [id number] bonding and delayed cord clamping, cut by Dad - A at 1 minute: 8 at 5 minutes: 9 Gender: Female (2154gms) B at 1 minute: 7 at 5 minutes: 9 Gender: Male (2159gms delivered by C Section)
--- NOTE | 2018-08-24 23:14 | Operative Report ---
Operative Report Operative Report: Date of procedure: 08/24/2018 Pre-operative diagnosis: 1. Status post normal spontaneous vaginal delivery of twin A 2. Non-reassuring tracing for twin B 3. Breech presentation Post-operative diagnosis: Same Procedure name(s): Primary low transverse section Surgeon: Tristian Del Castillo MD Filler Shaker: None Anesthesia: Gen. endotracheal intubation after failed epidural anesthesia EBL: 700 mL Findings: A 2159 g male Apgars 7 at 1 minute and 9 at 5. Clear amniotic fluid. Double footling breech presentation. Normal uterus. Normal tubes and ovaries bilaterally. Procedure: After the patient delivered twin A vaginally, twin B had a non- reassuring tracing and was in the footling breech presentation. She was therefore taken to the operating room where she was prepped and draped in usual sterile fashion, and after unsatisfactory level of epidural anesthesia, general anesthesia was administered and the skin knife was used to make a transverse skin incision. The incision was excised down to layer of the fascia, which was nicked in the midline and extended laterally using the Bovie cautery. The rectus muscles were dissected off the rectus fascia both superiorly and inferiorly. The rectus bellies in the midline, and the peritoneum was entered under direct visualization. The peritoneal incision was extended superiorly and inferiorly. A bladder flap was created and the bladder blade was then placed. The uterus was scored in a curvilinear linear fashion, entered in the midline revealing clear amniotic fluid. The 's double footling breech was delivered onto the surgical field, the rest of the 's body was delivered, cord was doubly clamped and cut and the was handed to the waiting respiratory team. Cord gas and cord blood was then obtained. The placentas were manually removed from the uterus and sent to pathology, and the uterus removed from its normal anatomical position. After gentle uterine lavage, the incision was inspected and found to be without extensions. It was then closed in 2 layers using 0 Vicryl suture in a running interlocking fashion, the second layer imbricating the first. After good hemostasis was achieved, copious amounts or irrigation was performed, and the gutters were suctioned free of blood and blood clots. Tisseel sealant was sprayed across the uterine incision. The uterus was then returned to its normal anatomical position, and after excellent hemostasis assured, the peritoneum was re-approximated using 3-0 Vicryl suture in a running interlocking fashion, and then the rectus muscles were re-approximated using 3-0 Vicryl suture in a [id number] configuration. The fascia was then re-approximated using 0 Vicryl suture in running interlocking fashion. The subcutaneous layer was made hemostatic using Bovie cautery, the Tisseel sealant was sprayed across the fascial incision and the skin edges re-approximated using 4-0 Vicryl suture in a sub-cuticular fashion. Patient tolerated the procedure well was transported to recovery in stable condition.
[2018-08-24] MEDS ORDERED: MYLICON PO PRN (23:22)
[2018-08-24] MEDS ORDERED: NARCAN 0.4 MG/1 ML IV PRN (23:22)
[2018-08-24] MEDS ORDERED: TYLENOL PO PRN (23:22)
[2018-08-24] MEDS ORDERED: PHENERGAN PR PRN (23:22)
[2018-08-24] MEDS ORDERED: NORCO 5/325 PO PRN (23:22)
[2018-08-24] MEDS ORDERED: TUCKS PAD TP PRN (23:22)
[2018-08-24] MEDS ORDERED: LANSINOH TP PRN (23:22)
[2018-08-24] MEDS ORDERED: SENOKOT PO PRN (23:22)
[2018-08-24] MEDS ORDERED: D5LR 1,000 ML IV SCH (23:45)
[2018-08-24] MEDS ORDERED: PITOCin/NS 20 UNIT/1000ML DRIP 20 UNITS/1,000 ML BAG IV SCH (23:45)
[2018-08-24] MEDS ORDERED: SODIUM CHLORIDE FLUSH SYRINGE 10 ML IV NR (23:45)
--- NOTE | 2018-08-24 23:54 | Post Anesthesia Evaluation ---
- Post Anesthesia Evaluation Patient Participated: Yes Airway Patent: Yes Stable Respiratory Function: Yes Nausea/Vomiting: No Temp > 96.8F: Yes Pain Manageable: Yes Adequeate Hydration: Yes Anesthesia Complications: No Block Receding Appropriately: Yes Patient on Ventilator: No
[2018-08-25] MEDS: PERCOCET 5/325 PO PRN ×3 (02:48→17:27)
[2018-08-25] MEDS: TORADOL IV PRN ×2 (05:19→11:27)
[2018-08-25] MEDS: ANCEF/NS 1 GM/50 ML 1 GM/50 ML BAG IV SCH ×2 (05:24→17:28)
[2018-08-25] MEDS: PRENATAL VITAMIN PO SCH (11:31)
[2018-08-25] MEDS: FEOSOL PO SCH (11:31)
--- NOTE | 2018-08-25 14:17 | Progress Note ---
Assessment and Plan - Patient Problems (1) 35 weeks gestation of Onset Date: 08/22/18 Current Visit: Yes Status: Resolved (2) Twin gestation in third trimester Onset Date: 08/22/18 Current Visit: Yes Status: Resolved Qualifiers: Multiple gestation type: dichorionic and diamniotic Qualified Code(s): O30.043 - Twin , dichorionic/diamniotic, third trimester (3) Status post Onset Date: 08/25/18 Current Visit: Yes Status: Resolved Plan to address problem: A: S/P - PPD #1 Twin A S/P C Section - POD #1 Twin B Asymptomatic anemia - stable P: Continue RPOC Anticipate discharge in 24-48hrs Subjective - Subjective Date of service: 08/25/18 Principal diagnosis: s/p C Section - POD #1 Interval history: Pt is feeling well s/p and C Section. Bleeding has improved. She is tolerating a liquid diet without nausea or vomiting. Patient reports: appetite normal, voiding normally, pain well controlled, flatus, ambulating normally, no dizzy ambulation, no nauseated : doing well, bottle feeding Objective - Vital Signs Latest vital signs: Vital Signs Temp Pulse Resp BP BP Pulse Ox 08/25/18 12:14 98.6 F 89 18 113/75 98 08/25/18 08:44 98.6 F 60 18 117/69 96 08/25/18 02:27 85 126/77 99 08/25/18 02:25 98.6 F 85 20 126/77 99 08/24/18 21:51 77 75 L 08/24/18 21:46 82 99 08/24/18 21:41 89 100 08/24/18 21:36 94 H 100 08/24/18 21:35 88 142/94 08/24/18 21:31 88 100 08/24/18 21:26 86 100 08/24/18 21:22 78 138/89 08/24/18 21:21 85 100 08/24/18 21:20 18 08/24/18 21:16 82 100 08/24/18 21:11 94 H 99 08/24/18 21:06 85 100 08/24/18 21:05 88 133/82 08/24/18 21:01 109 H 100 08/24/18 20:56 93 H 100 08/24/18 20:55 104 H 136/93 08/24/18 20:51 97 H 98 08/24/18 20:50 99 H 83 L 08/24/18 20:46 86 100 08/24/18 20:43 72 114/74 08/24/18 20:41 83 100 08/24/18 20:40 87 120/81 08/24/18 20:37 82 112/71 08/24/18 20:36 97 H 100 08/24/18 20:34 71 109/71 08/24/18 20:31 100 H 120/70 100 08/24/18 20:28 73 114/73 08/24/18 20:26 71 100 08/24/18 20:25 70 118/76 08/24/18 20:23 88 90 08/24/18 20:21 103 H 100 08/24/18 20:20 102 H 123/79 08/24/18 20:08 104 H 75 L 08/24/18 20:03 95 H 88 08/24/18 19:58 82 85 08/24/18 19:54 92 H 85 08/24/18 19:53 92 H 74 L 08/24/18 19:48 87 96 08/24/18 19:47 91 H 92 08/24/18 19:43 85 122/83 100 08/24/18 19:39 94 H 90 08/24/18 19:38 88 100 08/24/18 19:33 105 H 99 08/24/18 19:28 94 H 87 08/24/18 19:24 100 H 90 08/24/18 19:23 101 H 97 08/24/18 19:18 92 H 99 08/24/18 19:13 103 H 73 L 08/24/18 19:08 96 H 91 08/24/18 19:03 108 H 94 08/24/18 18:58 96 H 99 08/24/18 18:53 93 H 100 08/24/18 18:48 52 L 64 L 08/24/18 18:43 112 H 136/91 08/24/18 18:42 91 H 98 08/24/18 18:37 113 H 90 08/24/18 18:32 116 H 100 08/24/18 18:27 94 H 99 08/24/18 18:22 90 70 L 08/24/18 18:18 102 H 81 L 08/24/18 18:16 98 H 100 08/24/18 18:11 107 H 100 08/24/18 18:06 102 H 100 08/24/18 18:01 96 H 100 08/24/18 17:56 104 H 100 08/24/18 17:51 91 H 99 08/24/18 17:46 87 100 08/24/18 17:44 94 H 114/70 08/24/18 17:41 90 100 08/24/18 17:36 84 100 08/24/18 17:31 89 100 08/24/18 17:26 92 H 100 08/24/18 17:21 105 H 100 08/24/18 17:16 102 H 100 08/24/18 16:43 96 H 136/92 08/24/18 15:44 85 143/63 08/24/18 15:26 82 75 L 08/24/18 15:25 92 H 92 08/24/18 15:21 96 H 100 08/24/18 15:16 94 H 100 08/24/18 15:11 96 H 100 08/24/18 15:06 95 H 100 08/24/18 15:01 95 H 99 08/24/18 14:56 94 H 100 08/24/18 14:51 86 99 08/24/18 14:46 86 100 08/24/18 14:43 94 H 132/80 08/24/18 14:41 83 100 08/24/18 14:36 94 H 100 08/24/18 14:31 93 H 100 08/24/18 14:26 98 H 100 08/24/18 14:21 109 H 99 08/24/18 14:16 99 H 100 Intake and Output 08/24/18 08/25/18 08/25/18 22:59 06:59 14:59 Intake Total 50 720 Output Total 100 1350 Balance 50 -100 -630 Intake: IV 50 AMPICILLIN/NS 1 GM/50 ML 50 1 gm In 50 ml @ 100 mls/ hr IV Q4H [facility] Rx#: [id number] Oral 720 Output: Urine 100 1350 Indwelling Catheter 100 1350 Other: Total, Intake Amount 720 Total, Output Amount 100 1350 - Exam Breasts: Present: deferred Lungs: Present: Clear to auscultation Abdomen: Present: normal appearance, soft Uterus: Present: normal, firm, fundal height below umbilicus Extremities: Present: normal Incision: Present: normal, dry, intact, dressed - Labs Labs: Laboratory Tests 08/22/18 08/22/18 08/22/18 18:00 22:41 22:41 WBC 9.6 RBC 3.86 Hgb 11.6 Hct 34.3 MCV 89 MCH 30 MCHC 34 RDW 13.7 Plt Count 177 POC ABG pH POC ABG HCO3 POC ABG Total CO2 POC ABG O2 Sat POC ABG Base Excess Magnesium Urine Color Yellow Urine Turbidity Clear Urine pH 6.0 Ur Specific [place] 1.023 Urine Protein <15 mg/dl Urine Glucose (UA) Neg Urine Ketones Neg Urine Blood Neg Urine Nitrite Neg Urine Bilirubin Neg Urine Urobilinogen < 2.0 Ur Leukocyte Esterase Sm Urine WBC (Auto) 10.0 H Urine RBC (Auto) 2.0 U Epithel Cells (Auto) 6.0 Urine Mucus Few RPR Nonreactive Blood Type Antibody Screen 08/22/18 08/23/18 08/23/18 22:41 01:11 08:47 WBC RBC Hgb Hct MCV MCH MCHC RDW Plt Count POC ABG pH POC ABG HCO3 POC ABG Total CO2 POC ABG O2 Sat POC ABG Base Excess Magnesium 4.10 H 5.30 H Urine Color Urine Turbidity Urine pH Ur Specific [place] Urine Protein Urine Glucose (UA) Urine Ketones Urine Blood Urine Nitrite Urine Bilirubin Urine Urobilinogen Ur Leukocyte Esterase Urine WBC (Auto) Urine RBC (Auto) U Epithel Cells (Auto) Urine Mucus RPR Blood Type O POSITIVE Antibody Screen Negative 08/23/18 08/23/18 08/23/18 11:57 18:34 22:07 WBC RBC Hgb Hct MCV MCH MCHC RDW Plt Count POC ABG pH POC ABG HCO3 POC ABG Total CO2 POC ABG O2 Sat POC ABG Base Excess Magnesium 5.70 H 4.80 H 4.50 H Urine Color Urine Turbidity Urine pH Ur Specific [place] Urine Protein Urine Glucose (UA) Urine Ketones Urine Blood Urine Nitrite Urine Bilirubin Urine Urobilinogen Ur Leukocyte Esterase Urine WBC (Auto) Urine RBC (Auto) U Epithel Cells (Auto) Urine Mucus RPR Blood Type Antibody Screen 08/24/18 08/24/18 08/25/18 05:13 23:47 16:13 WBC RBC Hgb 10.2 Hct 30.1 L MCV MCH MCHC RDW Plt Count POC ABG pH 6.975 L POC ABG HCO3 20.0 POC ABG Total CO2 23 POC ABG O2 Sat 6 POC ABG Base Excess -12 Magnesium 4.10 H Urine Color Urine Turbidity Urine pH Ur Specific [place] Urine Protein Urine Glucose (UA) Urine Ketones Urine Blood Urine Nitrite Urine Bilirubin Urine Urobilinogen Ur Leukocyte Esterase Urine WBC (Auto) Urine RBC (Auto) U Epithel Cells (Auto) Urine Mucus RPR Blood Type Antibody Screen
[2018-08-25 17:02] LABS: Hematocrit 30.1 % (30.3-42.9); Hemoglobin 10.2 gm/dl (10.1-14.3)
[2018-08-25] MEDS: IBUPROFEN PO PRN (17:26)
[2018-08-25] MEDS ORDERED: M-M-R II VACCINE SUB-Q ONE (23:23)
[2018-08-25] MEDS ORDERED: BOOSTRIX IM ONE (23:23)
[2018-08-26] MEDS: PERCOCET 5/325 PO PRN ×4 (00:52→18:21)
[2018-08-26] MEDS: IBUPROFEN PO PRN ×4 (00:53→18:20)
--- NOTE | 2018-08-26 08:59 | Progress Note ---
Assessment and Plan - Patient Problems (1) 35 weeks gestation of Onset Date: 08/22/18 Current Visit: Yes Status: Resolved (2) Twin gestation in third trimester Onset Date: 08/22/18 Current Visit: Yes Status: Resolved Qualifiers: Multiple gestation type: dichorionic and diamniotic Qualified Code(s): O30.043 - Twin , dichorionic/diamniotic, third trimester (3) Status post Onset Date: 08/25/18 Current Visit: Yes Status: Resolved Plan to address problem: A: S/P - PPD #2 Twin A S/P C Section - POD #2 Twin B Asymptomatic anemia - stable P: Continue RPOC Anticipate discharge tomorrow. Subjective - Subjective Date of service: 08/26/18 Principal diagnosis: s/p C Section - POD #2 Interval history: Pt is feeling well without complaints. She is tolerating a reg diet without nausea or vomiting, ambulating and voiding without difficulty. Patient reports: appetite normal, voiding normally, pain well controlled, flatus, ambulating normally, no dizzy ambulation, no nauseated : doing well, nursing well Objective - Vital Signs Latest vital signs: Vital Signs Temp Pulse Resp BP BP Pulse Ox 08/26/18 00:00 98.0 F 83 20 118/73 08/25/18 15:38 98.2 F 75 20 121/67 98 08/25/18 12:14 98.6 F 89 18 113/75 98 Intake and Output 08/25/18 08/26/18 08/26/18 22:59 06:59 14:59 Intake Total 1600 720 Output Total 550 800 Balance 1050 -80 Intake: IV 1000 D5lr 1,000 ml @ 125 mls/ 1000 hr IV DIRECT DAVID Rx#: [id number] Oral 360 720 Intake, Free Water 240 Output: Urine 550 800 Void 550 800 Other: Total, Intake Amount 360 480 Total, Output Amount 400 400 # Voids Void 2 - Exam Abdomen: Present: normal appearance, soft Uterus: Present: normal, firm, fundal height below umbilicus Extremities: Present: normal Incision: Present: normal, dry, intact, dressed - Labs Labs: Abnormal lab results 08/24/18 08/25/18 Range/Units 23:47 16:13 Hct 30.1 L (30.3-42.9) % POC ABG pH 6.975 L (7.35-7.45)
[2018-08-26] MEDS: FEOSOL PO SCH (11:30)
[2018-08-26] MEDS: PRENATAL VITAMIN PO SCH (11:31)
[2018-08-26] MEDS: MILK OF MAGNESIA PO PRN (14:59)
[2018-08-26] MEDS: CEPACOL X STRENGTH MM PRN (22:54)
[2018-08-27] MEDS: PERCOCET 5/325 PO PRN ×4 (00:01→23:30)
[2018-08-27] MEDS: IBUPROFEN PO PRN ×4 (05:54→23:26)
[2018-08-27] MEDS: CEPACOL X STRENGTH MM PRN (05:55)
--- NOTE | 2018-08-27 10:33 | Discharge Summary ---
Providers - Providers Date of Admission: 08/22/18 19:50 Date of discharge: 08/27/18 Attending physician: DIRK GARCIA 08/22/18 20:17 Consult to Physician [CONS] Urgent Comment: Consulting Provider: ROXANA TRAVIS Physician Instructions: Reason For Exam: IUP @ 34 6/7 weeks; Twins 08/22/18 20:18 Consult to Physician [CONS] Urgent Comment: Consulting Provider: ROOSEVELT VELA Physician Instructions: Reason For Exam: IUP @ 34 6/7 weeks; Twins Primary care physician: DIRK GARCIA Hospitalization Reason for admission: active labor, IUP - Delivery: , Procedure: section, primary low transverse Episiotomy: none Laceration: none Incision: normal, dry, intact Other procedures: none complications: none Discharge diagnosis: delivery [place] baby: twins Hospital course: Pt is a 22yo BF EDC 09/27/; EGA 35 1/7 weeks who presented to L&D complaining of irregular contractions. She received care at [facility] since 9 weeks and co-managed by DAVID for Twin gestation. She was seen in the office and was dilated 3cms, she progressed to 4.5cm and thus was started on IV Magnesium sulfate until her course of steroids were completed. After completion of steroids, IV Magnesium sulfate was discontinued and labor progressed until she delivered Twin A vaginally, but had to have an uncomplicated C Section for delivery of Twin B due to distress. She tolerated the procedure well. By POD #3 she was tolerating a reg diet without nausea or vomiting, ambulating and voiding without difficulty. She was therefore discharged to home on POD #3 in stable condition and will follow up in the office in 2 weeks. Condition at discharge: Good Disposition: DC-01 TO HOME OR SELFCARE - Discharge Diagnoses (1) 35 weeks gestation of Status: Resolved (2) Twin gestation in third trimester Status: Resolved Qualifiers: Multiple gestation type: dichorionic and diamniotic Qualified Code(s): O30.043 - Twin , dichorionic/diamniotic, third trimester (3) Status post Status: Resolved Plan - Discharge Medications Prescriptions: Ferrous Sulfate [Feosol 325 MG tab] 325 mg PO BID #60 tablet Ibuprofen [Motrin 800 MG tab] 800 mg PO Q6H PRN #30 tablet PRN Reason: Pain, Mild (1-3) HYDROcodone/APAP 5-325 [[place] 5-325 mg TAB] 1 each PO Q6HR PRN #30 tablet PRN Reason: Pain, Moderate (4-6) Vit-Fe Fumar-FA [ Vitamin] 1 each PO QDAY #30 tablet - Provider Discharge Summary Activity: routine, no sex for 6 weeks, no heavy lifting 4 weeks, no strenuous exercise Diet: routine Instructions: routine Additional instructions: [] Smoking cessation referral if applicable(refer to patient education folder for contact #) [] Refer to [employer]'s [facility] Booklet Call your doctor immediately for: * Fever > 100.5 * Heavy vaginal bleeding ( >1 pad per hour) * Severe persistent headache * Shortness of breath * Reddened, hot, painful area to leg or breast * Drainage or odor from incision. * Keep incision clean and dry at all times and follow doctor's instructions regarding bathing/showering - Follow up plan Follow up: DIRK GARCIA MD [Primary Care Provider] - 14 Days
[2018-08-27] MEDS: PRENATAL VITAMIN PO SCH (11:08)
[2018-08-27] MEDS: FEOSOL PO SCH (11:08)
[2018-08-27 18:10] VITALS: BP 125/91
[2018-08-27] MEDS: MILK OF MAGNESIA PO PRN (23:26)
== END 2018-08-28 00:55 | disposition home or self-care (01) | DRG 765 ==
LOC: TRG 17:45 → LD 19:50 → APU 08-24 22:20 → OB 08-25 00:30
PROVIDERS: ADMIT Obstetrics & Gynecology; ATTEND Obstetrics & Gynecology
PROC: 10E0XZZ Delivery of Products of Conception, External Approach (ICD-10-PCS; principal; 2018-08-24)
PROC: 10D00Z1 Extraction of Products of Conception, Low, Open Approach (ICD-10-PCS; 2018-08-24)
PROC: 3E0R3BZ Introduction of Anesthetic Agent into Spinal Canal, Percutaneous Approach (ICD-10-PCS; 2018-08-24)
PROC: 00HU33Z Insertion of Infusion Device into Spinal Canal, Percutaneous Approach (ICD-10-PCS; 2018-08-24)
PROC: 4A033R1 Measurement of Arterial Saturation, Peripheral, Percutaneous Approach (ICD-10-PCS; 2018-08-24)
PROC: 3E0234Z Introduction of Serum, Toxoid and Vaccine into Muscle, Percutaneous Approach (ICD-10-PCS; 2018-08-25)
DX: O76 Abnormality in fetal heart rate and rhythm complicating labor and delivery (principal); O60.14X2 Preterm labor third trimester with preterm delivery third trimester, fetus 2; O30.043 Twin pregnancy, dichorionic/diamniotic, third trimester; O99.62 Diseases of the digestive system complicating childbirth; K21.9 Gastro-esophageal reflux disease without esophagitis; O99.02 Anemia complicating childbirth; D64.9 Anemia, unspecified; O62.0 Primary inadequate contractions; O32.1XX0 Maternal care for breech presentation, not applicable or unspecified; O62.8 Other abnormalities of forces of labor; Z3A.35 35 weeks gestation of pregnancy; Z37.2 Twins, both liveborn; Z23 Encounter for immunization
CPT/HCPCS: 36415; 59025; 76815; 81001; 82803; 83735; 85014; 85018; 85027; 86592; 86850; 86900; 86901; 88307; G0378; J0290; J0690; J1100; J1170; J1885; J2405; J2590; J2704; J2710; J3010; J3475; J7120; J7121

== ENCOUNTER 2018-10-08 04:35 | Emergency (ER) | payer MEDICAID ==
[2018-10-08 05:02] LABS: Red Blood Count 4.49 M/mm3 (3.65-5.03)
[2018-10-08 05:03] LABS: Basophils # (Auto) 0.1 K/mm3 (0.0-0.1); Basophils % (Auto) 0.9 % (0.0-1.8); Eosinophils # (Auto) 0.1 K/mm3 (0.0-0.4); Eosinophils % (Auto) 0.9 % (0.0-4.3); Hematocrit 39.5 % (30.3-42.9); Hemoglobin 13.2 gm/dl (10.1-14.3); Lymphocytes # (Auto) 2.7 K/mm3 (1.2-5.4); Lymphocytes % (Auto) 30.9 % (13.4-35.0); Mean Corpuscular HGB Conc 34 % (30-34); Mean Corpuscular Volume 88 fl (79-97); Monocytes # (Auto) 0.7 K/mm3 (0.0-0.8); Monocytes % (Auto) 7.5 % (0.0-7.3); Platelet Count 249 K/mm3 (140-440); Red Cell Distribution Width 15.1 % (13.2-15.2)
[2018-10-08 05:26] LABS: Alanine Aminotransferase 6 units/L (7-56); Albumin 3.9 g/dL (3.9-5); BUN/Creatinine Ratio 9; Blood Urea Nitrogen 9 mg/dL (7-17); Calcium 8.9 mg/dL (8.4-10.2); Hemolysis Index 9
[2018-10-08 07:50] LABS: Bilirubin,Urine NEG (Negative); Blood,Urine NEG (Negative); Color,Urine Yellow (Yellow); Mucus,Urine 3+ /HPF
[2018-10-08] MEDS ORDERED: NORCO 5/325 PO ONE (10:23)
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
[2018-10-08 11:54] VITALS: BP 127/91
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
== END 2018-10-08 13:00 | disposition home or self-care (01) ==
LOC: ED 04:35
DX: S00.33XA Contusion of nose, initial encounter (principal); R10.13 Epigastric pain; R11.2 Nausea with vomiting, unspecified; R19.7 Diarrhea, unspecified; F12.10 Cannabis abuse, uncomplicated; Z91.048 Other nonmedicinal substance allergy status; Y04.0XXA Assault by unarmed brawl or fight, initial encounter; Y93.89 Activity, other specified; Y92.89 Other specified places as the place of occurrence of the external cause; Y99.8 Other external cause status
CPT/HCPCS: 36415; 70486; 74177; 80053; 81001; 83690; 84703; 85025; 99283; Q9967

== ENCOUNTER 2019-02-04 09:55 | Outpatient (CLI) | payer MEDICAID ==
[2019-02-04] MEDS ORDERED: KINEVAC IV ONE (11:28)
--- NOTE | 2019-02-04 13:50 | Nuclear Medicine Report ---
NUCLEAR MEDICINE HEPATOBILIARY SCAN INDICATION: Epigastric abdominal pain. TECHNIQUE: Radiotracer: Tc-99m mebrofenin (by IV): 5 mCi. Gallbladder Stimulant: 1.1[Cholecystokinin (in mcg by IV) FINDINGS: Hepatic activity: Normal. Biliary activity: Normal. Common bile duct activity at 10 minutes. Gallbladder activity: Normal at 10 minutes. Small bowel activity: Normal at 15 minutes. Gallbladder ejection fraction % (if calculated): 50 (Normal is >35% at 30 min with Cholecystokinin OR >33% at 60 min with Ensure). Patient symptom reproduction: Kinevac administration reproduced the patient's symptoms.. IMPRESSION: 1. No biliary obstruction. 2. The ejection fraction is normal. 3. Kinevac administration reproduced the patient's symptoms. Signer Name: Vinny Colón MD Signed: 02/04/2019 1:46 PM Workstation Name: [id number]
== END 2019-02-04 09:56 | disposition home or self-care (01) ==
LOC: NM 09:55
PROVIDERS: ATTEND Student in an Organized Health Care Education/Training Program
DX: K59.09 Other constipation (principal); R11.2 Nausea with vomiting, unspecified; K21.9 Gastro-esophageal reflux disease without esophagitis
CPT/HCPCS: 78227; A9537; J2805

== ENCOUNTER 2019-05-22 14:53 | Emergency (ER) | payer MEDICAID ==
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
[2019-05-22 16:19] VITALS: BP 122/92
== END 2019-05-22 15:56 | disposition home or self-care (01) ==
LOC: ED 14:53
DX: M54.9 Dorsalgia, unspecified (principal); R10.9 Unspecified abdominal pain
CPT/HCPCS: 99283